=== PATIENT | female | born 1995 | race Caucasian/White ===

== ENCOUNTER 2019-05-16 20:09 | Emergency (ER) | payer BC, OTHER ==
[2019-05-16] MEDS ORDERED: IBUPROFEN 800 MG TABLET PO ONE (20:44)
--- NOTE | 2019-05-16 20:44 | ER Document Report ---
ED Medical Screen (RME) - General Chief Complaint: Elbow Injury Stated Complaint: FALL,RIGHT ARM PAIN Time Seen by Provider: 05/16/19 20:40 Primary Care Provider: EMELIA AUGUSTIN PA-C [Primary Care Provider] - Follow up as needed TRAVEL OUTSIDE OF THE [place] IN LAST 30 DAYS: No - HPI Notes: 05/16/19 20:42 Patient is a 23-year-old female with history of asthma who presents complaining of right proximal forearm/elbow pain status post injury prior to arrival. Patient states that she was trying to shave in the shower and slipped and fell directly on her elbow/forearm. Patient states that she has had pain since then and movement worsens the pain. Pain does not radiate otherwise. She did not hit her head or lose consciousness. Denies BERNAL, fever, neck pain, URI, CP, SOB, Abd pain, dysuria, back pain, or rash. I have treated and performed a rapid initial assessment of this patient. A comprehensive ED assessment and evaluation of the patient, analysis of test results and completion of medical decision making process will be conducted by additional ED providers. PHYSICAL EXAMINATION: GENERAL: Well-appearing, well-nourished and in no acute distress. A&Ox4. Answers questions appropriately. Rt UE: + small area of ecchymosis lateral elbow/prox forearm with associated tenderness. LROM to passive/active due to discomfort. N/V intact distal with 2+ pulses. No tenderness proximal UE or to the collar bone. - Related Data Allergies/Adverse Reactions: haloperidol [From Haldol] Allergy (Verified 06/30/14 01:15) haloperidol lactate [From Haldol] Allergy (Verified 06/30/14 01:15) Past Medical History Psychiatric Medical History: Reports: Hx Attention Deficit Hyperactivity Disorder, Hx Bipolar Disorder - Immunizations Immunizations up to date: Yes Physical Exam - Vital signs Vitals: Temp Pulse Resp BP Pulse Ox 99.1 F 68 18 105/59 L 98 05/16/19 20:28 05/16/19 20:28 05/16/19 20:28 05/16/19 20:28 05/16/19 20:28 Course - Vital Signs Vital signs: Temp Pulse Resp BP Pulse Ox 99.1 F 68 18 105/59 L 98 05/16/19 20:28 05/16/19 20:28 05/16/19 20:28 05/16/19 20:28 05/16/19 20:28 Doctor's Discharge - Discharge Referrals: EMELIA AUGUSTIN PA-C [Primary Care Provider] - Follow up as needed
--- NOTE | 2019-05-16 21:21 | RADIOLOGY REPORT (SQ) ---
2 VIEWS OF RIGHT FOREARM EXAM DATE: 05/16/2019 8:14 PM CDT HISTORY: Bone tenderness. COMPARISON: None. FINDINGS: No acute fracture or dislocation is seen. The joint spaces are preserved. The soft tissues are unremarkable. IMPRESSION: No acute fracture or malalignment.
--- NOTE | 2019-05-16 22:04 | ER Document Report ---
HPI - HPI Patient complains to provider of: fall Time Seen by Provider: 05/16/19 20:40 Pain Level: 4 Context: 23-year-old female with history of asthma who presents complaining of right proximal forearm/elbow pain status post injury prior to arrival. Patient states that she was trying to shave in the shower and slipped and fell directly on her elbow/forearm. Patient states that she has had pain since then and movement worsens the pain. Pain does not radiate otherwise. She did not hit her head or lose consciousness. Denies BERNAL, fever, neck pain, URI, CP, SOB, Abd pain, dysuria, back pain, or rash. - REPRODUCTIVE Reproductive: DENIES: : - MUSCULOSKELETAL Musculoskeletal: REPORTS: Extremity pain - elbow Past Medical History - Social History Smoking Status: Unknown if Ever Smoked Frequency of alcohol use: None Drug Abuse: None Family History: Reviewed & Not Pertinent Patient has suicidal ideation: No Patient has homicidal ideation: No Renal/ Medical History: Denies: Hx Peritoneal Dialysis Psychiatric Medical History: Reports: Hx Attention Deficit Hyperactivity Disorder, Hx Bipolar Disorder - Immunizations Immunizations up to date: Yes Vertical Provider Document - CONSTITUTIONAL Notes: PHYSICAL EXAMINATION: Reviewed vital signs and charting by RN GENERAL: Alert, interacts well. No acute distress. HEAD: Normocephalic, atraumatic. EYES: Pupils equal and round. Extraocular movements intact. ENT: Oral mucosa moist, tongue midline. NECK: Full range of motion. Trachea midline. LUNGS: Clear to auscultation bilaterally, no wheezes, rales, or rhonchi. No respiratory distress. HEART: Regular rate and rhythm. No murmur ABDOMEN: soft, non-tender. No distention. Bowel sounds present EXTREMITIES: Rt UE: + small area of ecchymosis lateral elbow/prox forearm with associated tenderness. LROM to passive/active due to discomfort. N/V intact distal with 2+ pulses. No tenderness proximal UE or to the collar bone. PSYCH: Normal affect, normal mood. SKIN: Warm, dry, normal turgor. No rashes or lesions noted. - INFECTION CONTROL TRAVEL OUTSIDE OF THE [place] IN LAST 30 DAYS: No Course - Vital Signs Vital signs: Temp Pulse Resp BP Pulse Ox 99.1 F 68 18 105/59 L 98 05/16/19 20:28 05/16/19 20:28 05/16/19 20:28 05/16/19 20:28 05/16/19 20:28 Discharge - Discharge Clinical Impression: Elbow injury Qualifiers: Encounter type: initial encounter Laterality: right Qualified Code(s): S59.901A - Unspecified injury of right elbow, initial encounter Condition: Good Disposition: HOME, SELF-CARE Additional Instructions: You were seen in the emergency department this evening for an elbow injury. X- ray did not show any fracture dislocation see most likely sustained a ligament sprain and/or a muscle strain. You can keep in the Jai wrap for protection and for comfort. Please keep in the sling when you are not working to rest it. Also, take Motrin 600 mg every 6 hours with food and/or milk you could take Tylenol 1000 mg every 6 hours as needed for pain. Also, and possibly most importantly, please ice your elbow for 15 to 20 minutes at a time every 2-3 hours to help with the inflammation. If your pain becomes severe, you are unable to move your elbow at all with maximum effort through pain, you lose sensation in your fingers, your fingers turn purple or black, or you have any other concerning symptoms please return to the emergency department. Referrals: EMELIA AUGUSTIN PA-C [NO LOCAL MD] - Follow up as needed
[2019-05-16 22:16] VITALS: BP 102/59
== END 2019-05-16 22:26 | disposition home or self-care (01) ==
LOC: ER 20:09
DX: S50.11XA Contusion of right forearm, initial encounter (principal); M79.631 Pain in right forearm; M25.521 Pain in right elbow; W18.2XXA Fall in (into) shower or empty bathtub, initial encounter; Y93.E8 Activity, other personal hygiene
CPT/HCPCS: 99283

== ENCOUNTER 2019-06-27 15:19 | Emergency (ER) | payer BC ==
--- NOTE | 2019-06-27 15:42 | ER Document Report ---
ED Medical Screen (RME) - General Chief Complaint: Abdominal Pain Stated Complaint: VOMITING/ABDOMINAL PAIN Time Seen by Provider: 06/27/19 15:36 Primary Care Provider: MONICA SANTACRUZ PA-C [Primary Care Provider] - Follow up as needed Mode of Arrival: Ambulatory Information source: Patient Notes: Patient presents emergency department with right lower quad abdominal pain started on Wednesday. She reports she had nausea and vomiting since that time. Denies pain with void denies urinary frequency. Reports she had a temperature of 102 last night. Patient was seen by customer resource specialist [facility] where they ordered a urine and told her to come to the emergency department for possible appendicitis or UTI. Patient denies pain with walk. Right lower quad is tender with palpation I have greeted and performed a rapid initial assessment of this patient. A comprehensive ED assessment and evaluation of the patient, analysis of test results and completion of the medical decision making process will be conducted by additional ED providers. Dictation of this chart was performed using voice recognition software; therefore, there may be some unintended grammatical errors. TRAVEL OUTSIDE OF THE [place] IN LAST 30 DAYS: No - Related Data Allergies/Adverse Reactions: haloperidol [From Haldol] Allergy (Verified 06/27/19 15:21) haloperidol lactate [From Haldol] Allergy (Verified 06/27/19 15:21) oseltamivir [From Tamiflu] Allergy (Verified 06/27/19 15:21) Past Medical History Renal/ Medical History: Denies: Hx Peritoneal Dialysis Psychiatric Medical History: Reports: Hx Attention Deficit Hyperactivity Disorder, Hx Bipolar Disorder - Immunizations Immunizations up to date: Yes Physical Exam - Vital signs Vitals: Temp Pulse Resp BP Pulse Ox 98.7 F 75 18 121/84 96 06/27/19 15:30 06/27/19 15:30 06/27/19 15:30 06/27/19 15:30 06/27/19 15:30 Course - Vital Signs Vital signs: Temp Pulse Resp BP Pulse Ox 98.7 F 75 18 121/84 96 06/27/19 15:30 06/27/19 15:30 06/27/19 15:30 06/27/19 15:30 06/27/19 15:30 Doctor's Discharge - Discharge Referrals: MONICA SANTACRUZ PA-C [Primary Care Provider] - Follow up as needed
[2019-06-27 16:24] LABS: ABSOLUTE EOSINOPHILS # (AUTO) 0.1 10^3/uL (0.0-0.6); ABSOLUTE LYMPHOCYTES (AUTO) 1.2 10^3/uL (0.5-4.7); ABSOLUTE MONOCYTES (AUTO) 0.5 10^3/uL (0.1-1.4); ABSOLUTE NEUT (AUTO) 3.8 10^3/uL (1.7-8.2); BASOPHILS % (AUTO) 0.6 % (0-2); EOSINOPHILS % (AUTO) 1.9 % (0-6); HEMATOCRIT 37.9 % (36.0-47.0); HEMOGLOBIN 13.1 g/dL (12.0-15.5); LYMPHOCYTES % (AUTO) 21.1 % (13-45); MEAN CORPUSCULAR HGB CONC 34.6 g/dL (32.0-36.0); MEAN CORPUSCULAR VOLUME 90 fl (80-97); MONOCYTES % (AUTO) 9.5 % (3-13); PLATELET COUNT 196 10^3/uL (150-450); RED BLOOD COUNT 4.23 10^6/uL (3.72-5.28); SEGMENTED NEUTROPHILS % (AUTO) 66.9 % (42-78); TOTAL CELLS COUNTED % (AUTO) 100 %; WHITE BLOOD COUNT 5.7 10^3/uL (4.0-10.5)
[2019-06-27 16:29] LABS: APPEARANCE,URINE SLIGHTLY-CLOUDY; BILIRUBIN,URINE NEGATIVE (NEGATIVE); COLOR,URINE YELLOW; GLUCOSE, URINE NEGATIVE (NEGATIVE); KETONES,URINE NEGATIVE (NEGATIVE); LEUKOCYTE ESTERASE,URINE MODERATE (NEGATIVE); NITRITE,URINE NEGATIVE (NEGATIVE); PROTEIN,URINE NEGATIVE (NEGATIVE); URINE SPECIFIC GRAVITY 1.013; UROBILINOGEN,URINE NEGATIVE mg/dL (<2.0)
[2019-06-27] MEDS ORDERED: ONDANSETRON HCL INJ/PF 4 MG/2 ML SDV IV ONE (16:29)
[2019-06-27 16:34] LABS: ALBUMIN 4.3 g/dL (3.5-5.0); ALKALINE PHOSPHATASE 78 U/L (38-126); ANION GAP 9 (5-19); ASPARTATE AMINO TRANSFERASE 22 U/L (14-36); BILIRUBIN,TOTAL 0.7 mg/dL (0.2-1.3); BLOOD UREA NITROGEN 10 mg/dL (7-20); CALCIUM 9.3 mg/dL (8.4-10.2); CARBON DIOXIDE 26 mmol/L (22-30); CHLORIDE 105 mmol/L (98-107); GLUCOSE 99 mg/dL (75-110); POTASSIUM 4.2 mmol/L (3.6-5.0); TOTAL PROTEIN 6.9 g/dL (6.3-8.2)
--- NOTE | 2019-06-27 16:36 | ER Document Report ---
ED GI/ - General Chief Complaint: Abdominal Pain Stated Complaint: VOMITING/ABDOMINAL PAIN Time Seen by Provider: 06/27/19 15:36 Primary Care Provider: MONICA SANTACRUZ PA-C [NO LOCAL MD] - Follow up as needed Mode of Arrival: Ambulatory Information source: Patient Notes: 23-year-old female presented to ED for complaint of right lower quadrant abdominal pain that started on Wednesday. She states she had nausea and vomiting since that time. She denies any urinary symptoms. She states she had a temperature of 102 last night with nausea and vomiting. She states she also had multiple diarrhea stools yesterday but no diarrhea today. States she has not had anything to eat or drink today due to the nausea and vomiting. She states she went to [facility] and they had her do a urine and drop it offered as below diagnostics and then come to the emergency room to rule out possible appendicitis or UTI. She states she does not have pain when she walks. She is alert oriented respirations regular and unlabored speaking in full sentences she is able to walk with a even steady gait. She does not drink smoke or use any drugs. TRAVEL OUTSIDE OF THE [place] IN LAST 30 DAYS: No - HPI Patient complains to provider of: Abdominal pain, Diarrhea, Pelvic pain, Vomiting Onset: Other - Right Wednesday Timing/Duration: Intermittent Quality of pain: Cramping, Sharp Severity at maximum: Severe Severity in ED: Moderate Pain Level: 3 Location: RUQ, Pelvis - Plan off until the and then a month until the first Associated symptoms: Diarrhea, Nausea, Vomiting Exacerbated by: Walking Relieved by: Denies Similar symptoms previously: Yes Recently seen / treated by doctor: Yes - Related Data Allergies/Adverse Reactions: haloperidol [From Haldol] Allergy (Verified 06/27/19 15:21) haloperidol lactate [From Haldol] Allergy (Verified 06/27/19 15:21) oseltamivir [From Tamiflu] Allergy (Verified 06/27/19 15:21) Past Medical History - General Information source: Patient - Social History Smoking Status: Current Every Day Smoker Frequency of alcohol use: Social Drug Abuse: None Occupation: [employer] Lives with: Family Family History: Reviewed & Not Pertinent Patient has suicidal ideation: No Patient has homicidal ideation: No - Past Medical History Cardiac Medical History: Reports: None Pulmonary Medical History: Reports: None EENT Medical History: Reports: None Neurological Medical History: Reports: None Endocrine Medical History: Reports: None Renal/ Medical History: Reports: None Malignancy Medical History: Reports: None GI Medical History: Reports: None Musculoskeletal Medical History: Reports Hx Musculoskeletal Trauma Skin Medical History: Reports None Psychiatric Medical History: Reports: Hx Attention Deficit Hyperactivity Disorder, Hx Bipolar Disorder Traumatic Medical History: Reports: Hx Fractures - Ankle Infectious Medical History: Reports: None Surgical Hx: Negative Past Surgical History: Reports: None, Hx Abdominal Surgery - Immunizations Immunizations up to date: Yes Review of Systems - Review of Systems Constitutional: Chills, Fever, Recent illness EENT: No symptoms reported Cardiovascular: No symptoms reported Respiratory: No symptoms reported Gastrointestinal: Abdominal pain, Diarrhea, Nausea, Vomiting Genitourinary: No symptoms reported Female Genitourinary: Other - Pelvic pain Musculoskeletal: No symptoms reported Skin: No symptoms reported Hematologic/Lymphatic: No symptoms reported Neurological/Psychological: No symptoms reported -: Yes All other systems reviewed and negative Physical Exam - Vital signs Vitals: Temp Pulse Resp BP Pulse Ox 98.7 F 75 18 121/84 96 06/27/19 15:30 06/27/19 15:30 06/27/19 15:30 06/27/19 15:30 06/27/19 15:30 Interpretation: Normal - General General appearance: Appears well, Alert - HEENT Head: Normocephalic, Atraumatic Eyes: Normal Pupils: PERRL - Respiratory Respiratory status: No respiratory distress Chest status: Nontender Breath sounds: Normal Chest palpation: Normal - Cardiovascular Rhythm: Regular Heart sounds: Normal auscultation Murmur: No - Abdominal Inspection: Normal Distension: No distension Bowel sounds: Normal Tenderness: Tender - right abdomen more to the pelvic area no rebound tenderness no peritoneal signs. No: Hernandez's sign, Guarding, Rebound Organomegaly: No organomegaly - Back Back: Normal, Nontender - Extremities General upper extremity: Normal inspection, Nontender, Normal color, Normal ROM, Normal temperature General lower extremity: Normal inspection, Nontender, Normal color, Normal ROM, Normal temperature, Normal weight bearing. No: Heidi's sign - Neurological Neuro grossly intact: Yes Cognition: Normal Orientation: AAOx4 Gustavo Coma Scale Eye Opening: Spontaneous Nicholls Coma Scale Verbal: Oriented Nicholls Coma Scale Motor: Obeys Commands Gustavo Coma Scale Total: 15 Speech: Normal Motor strength normal: LUE, RUE, LLE, RLE Sensory: Normal - Psychological Associated symptoms: Normal affect, Normal mood - Skin Skin Temperature: Warm Skin Moisture: Dry Skin Color: Normal Course - Re-evaluation Re-evalutation: 06/28/19 02:02 Ultrasound was discussed with patient she does have a right ovarian cyst. Pelvic exam showed pain was mostly to the right pelvic area and the ovarian area. Patient was given strict follow-up instructions concerning watching for appendicitis due to the fact that there is no peritoneal signs no rebound tenderness and pain was more to the side of the overeaten in the abdomen. Patient verbalized understanding and agreement with treatment plan and patient was discharged home - Vital Signs Vital signs: Temp Pulse Resp BP Pulse Ox 98.7 F 66 17 120/60 98 06/27/19 20:20 06/27/19 20:20 06/27/19 20:20 06/27/19 20:20 06/27/19 20:20 - Laboratory Result Diagrams: 06/27/19 15:50 06/27/19 15:50 Laboratory results interpreted by me: 06/27/19 15:50 Urine Blood SMALL H Ur Leukocyte Esterase MODERATE H - Diagnostic Test Radiology reviewed: Image reviewed, Reports reviewed Discharge - Discharge Clinical Impression: Abdominal pain Ovarian cyst Qualifiers: Laterality: right Qualified Code(s): N83.201 - Unspecified ovarian cyst, right side Disposition: HOME, SELF-CARE Instructions: Observation for Appendicitis ([facility]) Additional Instructions: Ovarian Cyst Your examination shows the presence of an ovarian cyst. This is a ball of fluid attached to the ovary. Ovarian cysts in women of child-bearing age are usually innocent. However, the cyst may cause pain when it grows or bursts. An innocent ovarian cyst will usually go away by itself. When the cyst becomes painful, you should rest. Pain medication may be required. Some women find a hot water bottle soothing. The pain usually resolves within one or two days. After menopause, an ovarian cyst may mean a tumor, and requires more aggressive evaluation -- usually surgery is recommended to remove or biopsy the cyst. A very large cyst requires evaluation at any age. Most cysts (even the innocent ones) require follow-up examination. Call the doctor or return at any time if the pain increases significantly, if you become faint, or if you experience vaginal bleeding. ABDOMINAL PAIN: There are many causes of abdominal pain. Pain can mean a serious problem requiring surgery (such as appendicitis). It can also be an innocent problem that goes away on its own (such as a viral infection). Often, time must pass to determine the cause of pain. The physician does not feel that hospitalization is necessary, at present. Things may change within the next 24 hours. Call the doctor or come back for re- examination if any problems occur, such as: (1) Pain that becomes more severe, steady, or becomes concentrated in one specific area. Also, pain that is more severe with movement or coughing. (2) Vomiting that persists or becomes more frequent. (3) Blood in the vomitus, urine, or bowel movements. Blood in the stool may have a tarry or black appearance. (4) Shaking chills or fever greater than 100 degrees F. (5) The abdomen becomes more distended or swollen. (6) Bowel movements cease. (7) Failure to improve as expected. Ibuprofen Ibuprofen is an excellent, safe drug for pain control. In addition, it has potent antiinflammatory effects which are beneficial, especially in the treatment of injuries, arthritis, or tendonitis. It's best to take ibuprofen with food. Persons with ulcer disease or allergy to aspirin should notify their physician of this before taking ibuprofen. Take the medication exactly as prescribed. Don't take additional doses unless instructed to do so by your doctor. If you develop wheezing, shortness of breath, hives, faintness, stomach pain, vomiting, or dark black stools, ret urn for re-evaluation at once. ANTINAUSEA MEDICATION: You have been given a medication to suppress nausea and vomiting. This type of medication can be given as a shot, pill, or suppository. It will usually last for many hours. Pills and shots usually last six to eight hours, suppositories last about 12 hours. For the typical illness, only one or two doses of the medication may be necessary. Mild lightheadedness may occur. This type of medicine can cause drowsiness. Do not drive or operate dangerous machinery while under its influence. Do not mix with alcohol. See your doctor at once if you have muscle spasms or tightness, or uncontrollable motions (particularly of the neck, mouth, or jaw). Persistent vomiting or severe lightheadedness should also be evaluated by the physician. FOLLOW-UP CARE: If you have been referred to a physician for follow-up care, call the physicians office for an appointment as you were instructed or within the next two days. If you experience worsening or a significant change in your symptoms, notify the physician immediately or return to the Emergency Department at any time for re-evaluation. You need to follow-up with [employer] for your ovarian cyst for any increase in pain or symptoms. At this time you do not appear to have a urinary tract infection I will send the urine for culture. The culture results nurse will call you if anything grows out or you can call [phone] and 48 hours for the result. Prescriptions: Ondansetron [Zofran Odt 4 mg Tablet] 1 tab PO Q6H #15 tab.rapdis Referrals: MONICA SANTACRUZ PA-C [NO LOCAL MD] - Follow up as needed
[2019-06-27] MEDS: NORMAL SALINE 1000 ML 1,000 ML IV PRN ×2 (16:56→18:44)
--- NOTE | 2019-06-27 17:42 | RADIOLOGY REPORT (SQ) ---
EXAM DESCRIPTION: U/S NON-OB PELVIS TV W/O DOP COMPLETED DATE/TIME: 06/27/2019 5:32 pm REASON FOR STUDY: right pelvic pain COMPARISON: None. TECHNIQUE: Dynamic and static grayscale images acquired of the pelvis via transvaginal approach and recorded on PACS. Additional selected color Doppler and spectral images recorded. LIMITATIONS: None. FINDINGS: UTERUS: Contour normal. No mass. ENDOMETRIAL STRIPE: No focal or generalized thickening. No masses. CERVIX: No nabothian cysts. RIGHT OVARY AND DOPPLER: Normal size. Dominant follicle or small cyst 1.5 cm. No worrisome masses. Normal arterial vascular flow without evidence for torsion. LEFT OVARY AND DOPPLER: Normal size. No worrisome masses. Normal arterial vascular flow without evide nce for torsion. FREE FLUID: Small mass. OTHER: No other significant finding. IMPRESSION: No evidence of ovarian torsion. Small cyst right ovary. TECHNICAL DOCUMENTATION: JOB ID: [id number] [employer]- All Rights Reserved Rev Reading location - IP/workstation name: [email or web address]
[2019-06-27 17:49] LABS: T.VAGINALIS (WET MOUNT) NO TRICHOMONAS SEEN; WBCS (WET MOUNT) RARE WBCS SEEN; YEAST (WET MOUNT) NO YEAST SEEN
[2019-06-27 19:13] LABS: CHLAM PCR NOT DETECTED (NOT DETECT)
[2019-06-27 20:22] VITALS: BP 120/60
== END 2019-06-27 20:19 | disposition home or self-care (01) ==
LOC: ER 15:19
DX: N83.201 Unspecified ovarian cyst, right side (principal); R10.31 Right lower quadrant pain; R10.11 Right upper quadrant pain; R10.2 Pelvic and perineal pain; R11.2 Nausea with vomiting, unspecified; R19.7 Diarrhea, unspecified; R50.9 Fever, unspecified; F17.200 Nicotine dependence, unspecified, uncomplicated; Z88.8 Allergy status to other drugs, medicaments and biological substances; Z88.3 Allergy status to other anti-infective agents
CPT/HCPCS: 36415; 87210; 84702; 83690; 85025; 81025; 80053; 81001; 87491; 87591; 76830; J2405; J7030; 96361; 96374; 99284